=== PATIENT | female | born 1995 | race Two or more races ===

== ENCOUNTER 2022-11-27 23:16 | Emergency (ER) | payer OTHER ==
[~2022-11-27] VITALS: Ht 162.6 cm; Wt 62.6 kg
[2022-11-28] MEDS ORDERED: CEPHALEXIN500 MG PO (02:49)
== END 2022-11-28 03:00 ==
LOC: ER 23:16 → EMR PED 23:20 → ER 23:20
DX: H60.8X2 Other otitis externa, left ear (principal); H83.8X2 Other specified diseases of left inner ear; H92.02 Otalgia, left ear